=== PATIENT | female | born 1995 | race African-American/Black ===

== ENCOUNTER 2021-02-02 20:41 | Emergency (ER) | payer SELFPAY ==
[~2021-02-02] VITALS: Ht 167.6 cm; Wt 114.0 kg
[2021-02-02] MEDS ORDERED: ONDANSETRON HCL 4MG/2ML INJ IV STA (23:40)
[2021-02-02] MEDS ORDERED: FAMOTIDINE 20MG/2ML VIAL IV STA (23:40)
[2021-02-02] MEDS ORDERED: SODIUM CHLORIDE 0.9% 1,000 ML IV ONE (23:45)
[2021-02-03 00:13] LABS: BASOPHILS % 1.3 % (0.0-2.0); EOSINOPHILS % 0.1 % (0.0-5.0); HEMATOCRIT. 41.1 % (36.0-48.0); HEMOGLOBIN. 13.8 g/dL (12.0-16.0); LYMPHOCYTES % 16.1 % (20.0-50.0); MEAN CORPUSCULAR HEMOGLOBIN 30.4 pg (28.0-32.0); MEAN CORPUSCULAR VOLUME 90.7 fL (81.0-99.0); MEAN PLATELET VOLUME 7.9 fl (7.4-10.4); MONOCYTES % 3.2 % (2.0-8.0); NEUTROPHILS % 79.3 % (40.0-76.0); PLATELET 423 x1000/uL (130-400); RED BLOOD CELL COUNT 4.53 mill/uL (4.2-5.4); RED CELL DISTRIBUTION WIDTH 13.5 % (11.6-14.6)
[2021-02-03 00:19] LABS: CHLORIDE 108 mEq/L (98-107)
[2021-02-03] MEDS ORDERED: ONDA4TAB5 MT (01:52)
[2021-02-03 03:07] VITALS: BP 131/84
== END 2021-02-03 03:08 | disposition home or self-care (01) ==
LOC: ER 20:41
DX: A05.9 Bacterial foodborne intoxication, unspecified (principal)
CPT/HCPCS: 36415; 80053; 83690; 85025; 96361; 96374; 96375; 99284; J2405; J3490; J7030